=== PATIENT | male | born 1985 | race Two or more races ===

== ENCOUNTER 2018-12-17 15:33 | Emergency (ER) | payer MEDICAID ==
[~2018-12-17] VITALS: Ht 167.6 cm; Wt 81.6 kg
[2018-12-17 15:45] VITALS: BP 115/74
--- NOTE | 2018-12-17 15:45 | NUR ---
ED Nurse Note: pt was brought in by ambulance c/o alcohol intoxication, pt stated he has been drinknig for 2 days now, vs within normal limits. pt is nauseated and complaining of epigastric pain. seen by adrienne cee. pt in calm and coopertaqtive, will continue to monitor
--- NOTE | 2018-12-17 15:53 | Emergency Room Report ---
History of Present Illness General Chief Complaint: Alcohol Intoxication Source: Patient, EMS Present Illness HPI 33 YO male presents to the ED C/O feeling nauseated and cough s/p 3 days of heavy drinking. 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 pt. denies blood in the vomit or black tarry stools. Pt. denies abdominal pain. He also feels as though his heart is beating a bit fast. reports recent use of THC as well as cocaine. Denies fevers or chills.Denies past medical history. Denies heart or liver problems. Denies CP, SOB or sudden onset of a severe AMTA. He denies head trauma or having open wounds /bleeding. Allergies: Coded Allergies: No Known Allergies (Unverified , 12/17/18) Patient History Past Medical History: see triage record Past Surgical History: none Pertinent Family History: none Reviewed Nursing Documentation: PMH: Agreed; PSxH: Agreed Nursing Documentation-PMH Past Medical History: No History, Except For History Of Psychiatric Problem: Yes - etoh abuse Review of Systems All Other Systems: negative except mentioned in HPI Physical Exam Vital Signs Date Time Temp Pulse Resp B/P (MAP) Pulse Ox O2 Delivery O2 Flow Rate FiO2 12/17/18 15:28 98.6 98 18 115/74 (88) 98 Room Air Sp02 EP Interpretation: reviewed, normal General Appearance: well appearing, no apparent distress, alert, GCS 15, non- toxic Head: normocephalic, atraumatic Eyes: bilateral eye normal inspection, bilateral eye PERRL ENT: hearing grossly normal, normal voice Neck: full range of motion Respiratory: chest non-tender, lungs clear, normal breath sounds, no respiratory distress, no wheezing, speaking full sentences Cardiovascular #1: regular rate, rhythm Gastrointestinal: normal bowel sounds, non tender, soft, non-distended, no guarding Musculoskeletal: back normal, gait/station normal, normal range of motion, non- tender Neurologic: alert, oriented x3, responsive, motor strength/tone normal, sensory intact, speech normal, grossly normal Psychiatric: judgement/insight normal Skin: normal color, no rash, warm/dry, well hydrated Medical Decision Making PA Attestation Dr. abdi is my supervising Physician whom patient management has been discussed with. Diagnostic Impression: Primary Impression: Acute alcoholic intoxication Qualified Codes: F10.920 - Alcohol use, unspecified with intoxication, uncomplicated ER Course Pt. presents to the ED intoxicated with alcohol, pt. is NAD, pt. is alert, no obvious signs of trauma, able to ambulate to chair. Ddx considered but are not limited to ETOH, Trauma, Syncope, dementia, OD Vital signs: are WNL, pt. is afebrile H&PE are most consistent with ETOH abuse. ORDERS: none required at this time ED INTERVENTIONS: - Zofran PO -Pepcid PO Observance while he detoxifies. Pt. was allowed to rest. PT. remained awake and alert x 3. After being under ED observation for almost 2 hours, pt. reported that he was feeling better and would like to be d/c'd -I do not identify an emergent condition at this time. With current presentation , pt. is stable for close outpatient follow up and conservative treatment. D/ w pt. to return promptly to ED with worsening or new symptoms.- Pt. verbalizes' understanding and agreement with proposed treatment plan. DISCHARGE: At this time pt. is stable for d/c to home. Will provide printed patient care instructions, and any necessary prescriptions. Care plan and follow up instructions have been discussed with the patient prior to discharge. Last Vital Signs Date Time Temp Pulse Resp B/P (MAP) Pulse Ox O2 Delivery O2 Flow Rate FiO2 12/17/18 15:28 98.6 98 18 115/74 (88) 98 Room Air Status: improved Disposition: HOME, SELF-CARE Condition: Stable Scripts Ranitidine Hcl* (ZANTAC*) 150 Mg Tablet 150 MG ORAL DAILY, #30 TAB 0 Refills Prov: Vandana Benson 12/17/18 Patient Instructions: Alcohol Intoxication, [id number] Additional Instructions: Take medications as directed. Follow up with a Primary Care Provider in 3-5 days, even if your symptoms have resolved. --Please review list of primary care clinics, if you do not already have a primary care provider Return sooner to ED if new symptoms occur, or current symptoms become worse. - Please note that this Emergency Department Report was dictated using [employer] conservator technology software, occasionally this can lead to erroneous entry secondary to interpretation by the dictation equipment. Vandana Benson December 17, 2018 15:53
--- NOTE | 2018-12-17 16:01 | NUR ---
ED Nurse Note: pt medicated and tolerated well.
[2018-12-17 16:57] VITALS: BP 112/77
[2018-12-17] MEDS ORDERED: ZANTAC150 MG ORAL (17:04)
[2018-12-17 17:10] VITALS: BP 112/77
--- NOTE | 2018-12-17 17:10 | NUR ---
ER DISCHARGE NOTE: Patient is cleared to be discharged per ERMD, pt is aox4, on room air, with stable vital signs. pt was given dc and prescription instructions, pt was able to verbalize understanding, pt id band removed without complications. pt is able to ambulate with steady gait. pt took all belongings.
== END 2018-12-17 17:10 | disposition home or self-care (01) ==
LOC: EDBD 15:33 → EMR 16:19
DX: F10.920 Alcohol use, unspecified with intoxication, uncomplicated (principal); R05 Cough
CPT/HCPCS: 99282